=== PATIENT | female | born 1980 | race African-American/Black ===

== ENCOUNTER 2018-03-05 01:36 | Inpatient (IN) | END 2018-03-06 17:20 | disposition home or self-care (01) | DRG 776 ==

== ENCOUNTER 2019-02-22 12:32 | Inpatient (IN) | payer BC ==
[~2019-02-22] VITALS: Ht 168.9 cm; Wt 122.5 kg
[~2019-02-22 12:32] MED LIST: GABA300C16 PO
[2019-02-22] MEDS ORDERED: HYDROmorphONE 1 MG/ML SYG IV STA (12:39)
[2019-02-22] MEDS ORDERED: KETOROLAC 15 MG INJ IV STA (12:39)
[2019-02-22] MEDS ORDERED: SOD CHLORIDE 0.9% 1,000 ML IV STA (12:39)
[2019-02-22] MEDS ORDERED: ONDANSETRON 4 MG INJ IV STA (12:39)
--- NOTE | 2019-02-22 12:48 | ERD ---
ER Documentation Chief Complaint Chief Complaint Back pain, BLE weakness HPI 38-year-old female with chronic back issues who presents with back pain via EMS. The patient states that she was moving suddenly and felt a twinge in her lower back. The patient now has pain that is 8 out of 10 to her lower back. The patient feels like her lower back is numb and is having difficulty moving her lower extremities. She denies any bowel or bladder incontinence. The patient is extremely anxious and states that she feels like she is twitching in her right hand. Patient has been dealing with back pain for some time and has had an MRI. They are currently working to get her physical therapy and see a back specialist. ROS All systems reviewed and are negative except as per history of present illness. Medications Home Meds Reported Medications Duloxetine Hcl* (Duloxetine Hcl*) 60 Mg Capsule.dr, 60 MG PO DAILY, #30 CAP 02/22/19 Aripiprazole* (Abilify*) 5 Mg Tab, 5 MG PO DAILY, #30 TAB 02/22/19 Trazodone Hcl* (Desyrel*) 100 Mg Tab, 100 MG PO QHS, #30 TAB 02/22/19 Ibuprofen* (Ibuprofen*) 800 Mg Tablet, 800 MG PO Q8, TAB 02/22/19 Gabapentin* (Gabapentin*) 600 Mg Tablet, 600 MG PO TID, #90 TAB 02/22/19 Discontinued Scripts Gabapentin* (Gabapentin*) 300 Mg Capsule, 300 MG PO TID, #90 CAP Prov:KEVIN HO 03/06/18 Allergies Allergies: Coded Allergies: butorphanol (Verified Allergy, Unknown, 02/22/19) PMhx/Soc History of Surgery: No Anesthesia Reaction: No Hx Neurological Disorder: No Hx Respiratory Disorders: No Hx Cardiac Disorders: No Hx Psychiatric Problems: No Hx Miscellaneous Medical Probl: Yes (back pain , s=L4-S1 SPINAL STENOSIS , DEGENRERATIVE DISC DISEASE.) Hx Alcohol Use: No Hx Substance Use: No Hx Tobacco Use: No FmHx Family History: No diabetes Physical Exam Vitals Vital Signs Date Temp Pulse Resp B/P (MAP) Pulse Ox O2 O2 Flow FiO2 Time Delivery Rate 02/22/19 80 18 142/97 99 Room Air 15:01 (112) 02/22/19 98.2 79 16 142/102 99 13:34 (115) Physical Exam General: Very anxious, stating that she has difficulty speaking because of her back pain Head: Normocephalic, atraumatic. Eyes: Pupils equally reactive, EOM intact ENT: Moist mucous membranes Neck: Supple, no lymphadenopathy Respiratory: Lungs clear bilaterally, no distress Cardiovascular: RRR, no murmurs, rubs, or gallops Abdominal: Soft, non-tender, non-distended, no peritoneal signs : Deferred MSK: Patient has sensation in the bilateral lower extremities but having difficulty moving them. The patient is not wiggling her toes on command and not bending her knees Back: No midline tenderness deformities or step-offs, limited exam Neurologic: Alert and oriented, moving all extremities, normal speech, no focal weakness, no cerebellar signs Skin: No rash Psych: Normal mood Result Diagram: 02/22/19 1314 02/22/19 1314 Results 24 hrs Laboratory Tests Test 02/22/19 13:14 White Blood Count 14.6 10^3/ul Red Blood Count 4.87 10^6/ul Hemoglobin 12.2 g/dl Hematocrit 39.8 % Mean Corpuscular Volume 81.7 fl Mean Corpuscular Hemoglobin 25.1 pg Mean Corpuscular Hemoglobin Concent 30.7 g/dl Red Cell Distribution Width 15.9 % Platelet Count 447 10^3/UL Mean Platelet Volume 8.8 fl Immature Granulocytes % 0.300 % Neutrophils % 65.6 % Lymphocytes % 24.7 % Monocytes % 7.9 % Eosinophils % 1.0 % Basophils % 0.5 % Nucleated Red Blood Cells % 0.0 /100WBC Immature Granulocytes # 0.050 10^3/ul Neutrophils # 9.6 10^3/ul Lymphocytes # 3.6 10^3/ul Monocytes # 1.2 10^3/ul Eosinophils # 0.1 10^3/ul Basophils # 0.1 10^3/ul Nucleated Red Blood Cells # 0.0 10^3/ul Prothrombin Time 12.8 Sec Prothrombin Time Ratio 1.0 INR International Normalized Ratio 0.95 Activated Partial Thromboplast Time 29.2 Sec Sodium Level 140 mmol/L Potassium Level 3.9 mmol/L Chloride Level 104 mmol/L Carbon Dioxide Level 28 mmol/L Anion Gap 8 Blood Urea Nitrogen 13 mg/dl Creatinine 0.81 mg/dl Est Glomerular Filtrat Rate mL/min > 60 mL/min Glucose Level 94 mg/dl Calcium Level 9.0 mg/dl Serum HCG, Qualitative NEGATIVE Current Medications Medications Dose Sig/Dat Start Time Status Last (Trade) Ordered Route PRN Stop Time Admin Dose Reason Admin Sodium 1,000 ml @ Q1H STAT 02/22/19 DC 02/22/19 Chloride 1,000 mls/hr IV 12:39 15:14 02/22/19 13:38 1 mg ONCE STAT 02/22/19 DC 02/22/19 Hydromorphone IV 12:39 13:27 HCl 02/22/19 12:42 (Dilaudid) Ondansetron 4 mg ONCE STAT 02/22/19 DC 02/22/19 HCl (Zofran IV 12:39 13:26 Inj) 02/22/19 12:42 Ketorolac 15 mg ONCE STAT 02/22/19 DC 02/22/19 Tromethamine IV 12:39 15:14 (Toradol) 02/22/19 12:42 Diazepam 5 mg ONCE ONCE 02/22/19 DC 02/22/19 (Valium) IV 13:00 13:26 02/22/19 13:01 Ondansetron 4 mg BRIDGE ORDER 02/22/19 HCl (Zofran PRN IV 18:00 Inj) NAUSEA/VOMITI 02/23/19 17:59 NG 650 mg ER BRIDGE 02/22/19 Acetaminophen PRN PO 18:00 (Tylenol .MILD PAIN 02/23/19 17:59 Tab) 1-3 OR TEMP Procedures/MDM EKG, MONITORS, & DIAGNOSTIC IMAGING: MRI T & L spine: IMPRESSION: 1. L5-S1: Redemonstration of the 3 mm far left/foraminal protrusion contributing to moderate to severe neural foraminal stenosis and possibly impinging the exiting L5 nerve root. Mild to moderate right neural foraminal stenosis. Central canal. 2. L4-L5: Redemonstration of the small disc bulge with a superimposed 2 mm far right foraminal protrusion contributing to moderate to severe neural foraminal stenosis and likely impinging the exiting L4 nerve root. Moderate left neural foraminal stenosis 3. No acute vertebral body fractures. 4. Overall the findings are similar to the previous study. IMPRESSION: 1. No acute vertebral body fractures. 2. No evidence for central canal stenosis or abnormal cord signal. LAB INTERPRETATION: I reviewed the laboratory testing and it shows [no evidence of acute process] MEDICAL DECISION MAKING: The patient presents with an exacerbation of chronic back pain. Patient is extremely anxious stating that she cannot talk and having twitching in her hand related to the pain. Patient is not moving her bilateral lower extremities. I am suspicious for some behavioral component of this including anxiety however the patient does have a known history of back problems. The patient truly has weakness this could be concerning for cauda equina cord compression and warrants MRI imaging. Stat MRI T and L-spine has been ordered. Patient was recently started on gabapentin and prednisone. Patient will benefit from anxiolysis, muscle relaxation, pain medication. ER COURSE: * The patient was given medication as documented above. The patient has MRI imaging that shows no evidence of cord compression. On repeat examination the patient is still having difficulty moving her lower extremities. Again this still appears to be somewhat behavioral but given the fact that she has persistent symptoms I cannot discharge her. I believe inpatient hospitalization for neurosurgical, neurology consultation would be appropriate. I do not believe this is consistent with cauda equina. No signs or symptoms concerning for Guillain-Byers or alternative diagnosis. CONSULTATION: Neurosurgeon on-call, Dr. Arce notified and will consult DISPOSITION PLAN: Accepting care team and consultations: I discussed the current laboratory data, diagnostic imaging and emergency care provided. Admitting team: Dr. Ugalde Admitting team indication: Insurance directed Departure Diagnosis: Primary Impression: Acute lumbar radiculopathy Additional Impression: Weakness of both lower extremities Condition: Stable KSENIA LANGLEY MD Feb 22, 2019 12:48
[2019-02-22] MEDS ORDERED: DIAZEPAM 5 MG/ML SYG IV ONE (13:00)
[2019-02-22] MEDS ORDERED: IBUP-1544 PO (15:20)
[2019-02-22] MEDS ORDERED: GABA-526 PO (15:20)
[2019-02-22] MEDS ORDERED: ARIP5TAB14 PO (15:21)
[2019-02-22] MEDS ORDERED: DULO60CA59 PO (15:21)
[2019-02-22] MEDS ORDERED: TRAZ-150 PO (15:21)
--- NOTE | 2019-02-22 16:46 | QN ---
Documentation Comment Imaging reviewed and case discussed with ER attending. This 38 year old female presents with exacerbation of back pain. She has no neck pain and her upper extremity strength is nornal per the ER MD. Her lumbar and thoracic spine MR imaging is essentially negative. I do not see any imaging findings that would be consistent with an anatomic cause of her pain or lower extremity weakness. Certainly, there is no indication for neurological surgery based on MRI. I recommend she be evaluated by neurology. Please let me know if neurology feels there is a need for acute neurosurgical intervention. I would be happy so see this patient in any event in follow up as an outpatient. Physiatry/ pain medicine may also be considered for follow up post discharge. Thank you! YANNA GALLO MD Feb 22, 2019 16:46
[2019-02-22] MEDS ORDERED: ACETAMINOPHEN 325 MG TAB PO PRN ×2 (18:00→21:00)
[2019-02-22] MEDS ORDERED: ONDANSETRON 4 MG INJ IV PRN ×2 (18:00→21:00)
[2019-02-22 20:40] VITALS: BP 138/77; PULSE 84; RESP 18
[2019-02-22] MEDS ORDERED: OXYCODONE/ACETAMINOPHEN (5/325) TAB PO PRN (21:00)
[2019-02-22] MEDS ORDERED: ALBUTEROL/IPRATROPIUM (NEB) 3 ML AMP HHN PRN (21:00)
[2019-02-22] MEDS ORDERED: NACL 0.9% 3 ML SYG IV SCH (21:00)
[2019-02-22] MEDS ORDERED: DEXAMETHASONE 4 MG/ML 1 ML INJ IV ONE (21:30)
[2019-02-22 22:01] VITALS: Ht 168.9 cm; Wt 122.5 kg
[2019-02-22] MEDS: traZODone 100 MG TAB PO SCH (22:15)
[2019-02-22] MEDS: GABAPENTIN 300 MG CAP PO SCH (22:15)
--- NOTE | 2019-02-22 23:42 | HP ---
Date/Time of Note Date/Time of Note DATE: 02/22/19 TIME: 23:42 Assessment/Plan VTE Prophylaxis Pharmacological prophylaxis: heparin Lines/Catheters IV Catheter Type (from Nrsg): Saline Lock Urinary Cath still in place: No Assessment/Plan Assessment/Plan Acue on chronic back pain L4-S1 degenerative back changes: not acutely surgical per neurosurgery morbid obesity Leucocytosis : reactive ? Hypochromasia without anemia Chronic depression Dispo: continue supportive care and pain control PT eval plan to d/c when pain is tolerable on oral meds Neurology consult per neurosurgery Result Diagram: 02/22/19 1314 02/22/19 1314 Results 24hrs Laboratory Tests Test 02/22/19 13:14 White Blood Count 14.6 #H Red Blood Count 4.87 Hemoglobin 12.2 Hematocrit 39.8 Mean Corpuscular Volume 81.7 L Mean Corpuscular Hemoglobin 25.1 L Mean Corpuscular Hemoglobin Concent 30.7 L Red Cell Distribution Width 15.9 H Platelet Count 447 H Mean Platelet Volume 8.8 Immature Granulocytes % 0.300 Neutrophils % 65.6 Lymphocytes % 24.7 Monocytes % 7.9 Eosinophils % 1.0 Basophils % 0.5 Nucleated Red Blood Cells % 0.0 Immature Granulocytes # 0.050 H Neutrophils # 9.6 H Lymphocytes # 3.6 H Monocytes # 1.2 H Eosinophils # 0.1 Basophils # 0.1 Nucleated Red Blood Cells # 0.0 Prothrombin Time 12.8 Prothrombin Time Ratio 1.0 INR International Normalized Ratio 0.95 Activated Partial Thromboplast Time 29.2 Sodium Level 140 Potassium Level 3.9 Chloride Level 104 Carbon Dioxide Level 28 Anion Gap 8 Blood Urea Nitrogen 13 Creatinine 0.81 Est Glomerular Filtrat Rate mL/min > 60 Glucose Level 94 Calcium Level 9.0 Serum HCG, Qualitative NEGATIVE HPI/ROS Admit Date/Time Admit Date/Time Feb 22, 2019 at 17:58 Hx of Present Illness 38-year-old female with chronic back issues who presents with back pain via EMS. The patient states that she was moving suddenly and felt a twinge in her lower back. The patient now has pain that is 8 out of 10 to her lower back. The patient feels like her lower back is numb and is having difficulty moving her lower extremities. She denies any bowel or bladder incontinence. The patient is extremely anxious and states that she feels like she is twitching in her right hand. Patient has been dealing with back pain for some time and has had an MRI. They are currently working to get her physical therapy and see a back specialist. PMH/Family/Social Past Medical History Past Surgical History Past Surgical Hx: other (See HPI) Family History Significant Family History: heart disease Social History Alcohol Use: none Smoking Status: Never smoker Drug Use: none Exam Constitutional: other (Intubated. Looks comfortable on a vent) Head: normocephalic, atraumatic Respiratory: diminished breath sounds Cardiovascular: irregular rhythm Gastrointestinal: soft Extremities: normal pulses Medical History: other (see hpi) Medications Current Medications IV Flush (NS 3 ml) 3 ml PER PROTOCOL IV ; Start 02/22/19 at 21:00 Ondansetron HCl (Zofran Inj) 4 mg Q6H PRN IV NAUSEA/VOMITING; Start 02/22/19 at 21:00 Acetaminophen (Tylenol Tab) 650 mg Q6H PRN PO .PAIN 1-3 OR TEMP; Start 02/22/19 at 21:00 Acetaminophen/ Hydrocodone Bitart ([place] (5/325)) 1 tab Q6H PRN PO .MOD PAIN 4- 6; Start 02/22/19 at 21:00 Oxycodone/ Acetaminophen (Percocet (5/ 325)) 1 tab Q6H PRN PO .MOD PAIN 4-6; Start 02/22/19 at 21:00 Hydromorphone HCl (Dilaudid) 1 mg Q4H PRN IV .SEVERE PAIN 7-10; Start 02/22/19 at 21:00 Albuterol/ Ipratropium (Duoneb) 3 ml Q2H RESP THERAPY PRN HHN SHORTNESS OF BREATH; Start 02/22/19 at 21:00 Aripiprazole (Abilify) 5 mg DAILY PO ; Start 02/23/19 at 09:00 Duloxetine HCl (Cymbalta) 60 mg DAILY PO ; Start 02/23/19 at 09:00 Gabapentin (Neurontin) 600 mg TID PO Last administered on 02/22/19at 22:15; Admin Dose 600 MG; Start 02/22/19 at 21:00 Trazodone HCl (Desyrel) 100 mg QHS PO Last administered on 02/22/19at 22:15; Admin Dose 100 MG; Start 02/22/19 at 21:00 Coded Allergies: butorphanol (Verified Allergy, Unknown, 02/22/19) pt claimed she passed out ( loss of consciousness ) after taking stadol. Past Surgical History Past Surgical Hx: other (see hpi) Family History Significant Family History: no pertinent family hx Social History Alcohol Use: other Smoking Status: Never smoker Drug Use: none Exam/Review of Systems Vital Signs Vitals Vital Signs Date Temp Pulse Resp B/P (MAP) Pulse Ox O2 O2 Flow FiO2 Time Delivery Rate 02/22/19 98.6 84 18 138/77 98 20:40 (97) 02/22/19 Room Air 19:56 Exam Constitutional: other (obese, mild distress) Head: normocephalic Eyes: PERRL Neck: supple Respiratory: normal air movement Cardiovascular: nl pulses Gastrointestinal: soft Extremities: normal pulses TATO RODRIGUEZ MD Feb 22, 2019 23:42
[2019-02-23 01:50] VITALS: BP 150/77; PULSE 80; RESP 18
[2019-02-23] MEDS: HYDROmorphONE 0.5 MG/0.5 ML SYG IV PRN ×2 (01:52→09:00)
[2019-02-23] MEDS ORDERED: IBUPROFEN 600 MG TAB PO PRN (03:30)
[2019-02-23 07:46] VITALS: BP 142/94; PULSE 81; RESP 20
[2019-02-23] MEDS: GABAPENTIN 300 MG CAP PO SCH ×3 (09:02→20:54)
[2019-02-23] MEDS: ARIPIPRAZOLE 5 MG TAB PO SCH (09:02)
[2019-02-23] MEDS: DULOXETINE 30 MG CAP DR PO SCH (09:06)
--- NOTE | 2019-02-23 10:42 | PN ---
Date/Time of Note Date/Time of Note DATE: 02/23/19 TIME: 10:37 Assessment/Plan VTE Prophylaxis Pharmacological prophylaxis: LMWH Lines/Catheters IV Catheter Type (from Nrsg): Saline Lock Urinary Cath still in place: No Assessment/Plan Hospital Course 38-year-old female with chronic back issues who presents with back pain via EMS. The patient states that she was moving suddenly and felt a twinge in her lower back. Acue on chronic back pain L4-S1 degenerative back changes: not acutely surgical per neurosurgery morbid obesity Leucocytosis : reactive ? Hypochromasia without anemia Chronic depression Dispo: continue supportive care and pain control PT eval plan to d/c when pain is tolerable on oral meds Neurology consult per neurosurgery Result Diagram: 02/23/1952202/23/19522 Results 24hrs Laboratory Tests Test 02/22/19 13:14 02/23/19 05:23 White Blood Count 14.6 #H 14.8 H Red Blood Count 4.87 5.13 Hemoglobin 12.2 12.8 Hematocrit 39.8 41.9 Mean Corpuscular Volume 81.7 L 81.7 L Mean Corpuscular Hemoglobin 25.1 L 25.0 L Mean Corpuscular Hemoglobin Concent 30.7 L 30.5 L Red Cell Distribution Width 15.9 H 15.8 H Platelet Count 447 H 490 H Mean Platelet Volume 8.8 9.2 Immature Granulocytes % 0.300 0.600 H Neutrophils % 65.6 91.1 H Lymphocytes % 24.7 7.2 L Monocytes % 7.9 1.0 Eosinophils % 1.0 0.0 Basophils % 0.5 0.1 Nucleated Red Blood Cells % 0.0 0.0 Immature Granulocytes # 0.050 H 0.090 H Neutrophils # 9.6 H 13.4 H Lymphocytes # 3.6 H 1.1 Monocytes # 1.2 H 0.2 L Eosinophils # 0.1 0.0 Basophils # 0.1 0.0 Nucleated Red Blood Cells # 0.0 0.0 Prothrombin Time 12.8 Prothrombin Time Ratio 1.0 INR International Normalized Ratio 0.95 Activated Partial Thromboplast Time 29.2 Sodium Level 140 143 Potassium Level 3.9 4.6 Chloride Level 104 105 Carbon Dioxide Level 28 24 Anion Gap 8 14 H Blood Urea Nitrogen 13 11 Creatinine 0.81 0.74 Est Glomerular Filtrat Rate mL/min > 60 > 60 Glucose Level 94 134 # Calcium Level 9.0 9.4 Serum HCG, Qualitative NEGATIVE Phosphorus Level 3.5 Magnesium Level 2.3 Total Bilirubin 0.5 Direct Bilirubin 0.00 Indirect Bilirubin 0.5 Aspartate Amino Transf (AST/SGOT) 16 Alanine Aminotransferase (ALT/SGPT) 12 L Alkaline Phosphatase 71 Total Protein 7.7 Albumin 4.3 Globulin 3.40 H Albumin/Globulin Ratio 1.26 Subjective 24 Hr Interval Summary Free Text/Dictation pain is better with meds c/o numbness tyron LE and feet Exam/Review of Systems Exam Vitals Vital Signs Date Temp Pulse Resp B/P (MAP) Pulse Ox O2 O2 Flow FiO2 Time Delivery Rate 02/23/19 98.1 81 20 142/94 95 07:46 (110) 02/22/19 Room Air 19:56 Intake and Output 02/22/19 02/22/19 02/23/19 1515:00 23:00 07:00 IntakeIntake Total 1000 ml BalanceBalance 1000 ml Constitutional: alert, obese Psych: anxiety Head: normocephalic Eyes: PERRL Neck: supple Respiratory: clear to auscultation Cardiovascular: regular rate and rhythm Gastrointestinal: soft, non-tender, bowel sounds Extremities: No edema Neurological: No focal weakness Results Results 24hrs Laboratory Tests Test 02/22/19 13:14 02/23/19 05:23 White Blood Count 14.6 #H 14.8 H Red Blood Count 4.87 5.13 Hemoglobin 12.2 12.8 Hematocrit 39.8 41.9 Mean Corpuscular Volume 81.7 L 81.7 L Mean Corpuscular Hemoglobin 25.1 L 25.0 L Mean Corpuscular Hemoglobin Concent 30.7 L 30.5 L Red Cell Distribution Width 15.9 H 15.8 H Platelet Count 447 H 490 H Mean Platelet Volume 8.8 9.2 Immature Granulocytes % 0.300 0.600 H Neutrophils % 65.6 91.1 H Lymphocytes % 24.7 7.2 L Monocytes % 7.9 1.0 Eosinophils % 1.0 0.0 Basophils % 0.5 0.1 Nucleated Red Blood Cells % 0.0 0.0 Immature Granulocytes # 0.050 H 0.090 H Neutrophils # 9.6 H 13.4 H Lymphocytes # 3.6 H 1.1 Monocytes # 1.2 H 0.2 L Eosinophils # 0.1 0.0 Basophils # 0.1 0.0 Nucleated Red Blood Cells # 0.0 0.0 Prothrombin Time 12.8 Prothrombin Time Ratio 1.0 INR International Normalized Ratio 0.95 Activated Partial Thromboplast Time 29.2 Sodium Level 140 143 Potassium Level 3.9 4.6 Chloride Level 104 105 Carbon Dioxide Level 28 24 Anion Gap 8 14 H Blood Urea Nitrogen 13 11 Creatinine 0.81 0.74 Est Glomerular Filtrat Rate mL/min > 60 > 60 Glucose Level 94 134 # Calcium Level 9.0 9.4 Serum HCG, Qualitative NEGATIVE Phosphorus Level 3.5 Magnesium Level 2.3 Total Bilirubin 0.5 Direct Bilirubin 0.00 Indirect Bilirubin 0.5 Aspartate Amino Transf (AST/SGOT) 16 Alanine Aminotransferase (ALT/SGPT) 12 L Alkaline Phosphatase 71 Total Protein 7.7 Albumin 4.3 Globulin 3.40 H Albumin/Globulin Ratio 1.26 Imaging Imaging MRI reviewed Medications Medication Current Medications IV Flush (NS 3 ml) 3 ml PER PROTOCOL IV ; Start 02/22/19 at 21:00 Ondansetron HCl (Zofran Inj) 4 mg Q6H PRN IV NAUSEA/VOMITING; Start 02/22/19 at 21:00 Acetaminophen (Tylenol Tab) 650 mg Q6H PRN PO .PAIN 1-3 OR TEMP; Start 02/22/19 at 21:00 Acetaminophen/ Hydrocodone Bitart ([place] (5/325)) 1 tab Q6H PRN PO .MOD PAIN 4- 6; Start 02/22/19 at 21:00 Oxycodone/ Acetaminophen (Percocet (5/ 325)) 1 tab Q6H PRN PO .MOD PAIN 4-6; Start 02/22/19 at 21:00 Hydromorphone HCl (Dilaudid) 1 mg Q4H PRN IV .SEVERE PAIN 7-10 Last administered on 02/23/19at 09:00; Admin Dose 1 MG; Start 02/22/19 at 21:00 Albuterol/ Ipratropium (Duoneb) 3 ml Q2H RESP THERAPY PRN HHN SHORTNESS OF BREATH; Start 02/22/19 at 21:00 Aripiprazole (Abilify) 5 mg DAILY PO Last administered on 02/23/19at 09:02; Admin Dose 5 MG; Start 02/23/19 at 09:00 Duloxetine HCl (Cymbalta) 60 mg DAILY PO Last administered on 02/23/19at 09:06; Admin Dose 60 MG; Start 02/23/19 at 09:00 Gabapentin (Neurontin) 600 mg TID PO Last administered on 02/23/19at 09:02; Admin Dose 600 MG; Start 02/22/19 at 21:00 Trazodone HCl (Desyrel) 100 mg QHS PO Last administered on 02/22/19at 22:15; Admin Dose 100 MG; Start 02/22/19 at 21:00 Ibuprofen (Motrin) 600 mg Q6 PRN PO pain; Start 02/23/19 at 03:30 BUSHRA DEL REAL Feb 23, 2019 10:42
[2019-02-23] MEDS ORDERED: morphine 4 MG/ML VIAL IV PRN (11:00)
[2019-02-23] MEDS: HYDROCODONE/APAP (5/325) TAB PO PRN (13:05)
[2019-02-23 14:21] VITALS: BP 133/80; PULSE 94; RESP 20
[2019-02-23 20:28] VITALS: BP 130/67; PULSE 90; RESP 18
[2019-02-23] MEDS: traZODone 100 MG TAB PO SCH (20:54)
[2019-02-24 02:36] VITALS: BP 125/74; PULSE 80; RESP 18
[2019-02-24 07:56] VITALS: BP 134/85; PULSE 66; RESP 20
[2019-02-24] MEDS: ARIPIPRAZOLE 5 MG TAB PO SCH (08:57)
[2019-02-24] MEDS: GABAPENTIN 300 MG CAP PO SCH ×2 (08:57→12:46)
[2019-02-24] MEDS: DULOXETINE 30 MG CAP DR PO SCH (08:57)
[2019-02-24] MEDS: HYDROCODONE/APAP (5/325) TAB PO PRN ×2 (09:02→19:07)
--- NOTE | 2019-02-24 11:08 | CONS ---
Assessment/Plan Assessment/Plan Hospital Course 38 yo F with a hx of obesity and other comorbidities who presents for evaluation of an acute onset of low back with radiation down her legs. The clinical picture is consistent with an acute lumbosacral radiculopathy. 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 P: Cont gabapentin TID, to be titrated to effect as tolerated Agree with NSAID PRN Limit opiates where possible Consider short course of steroids should pain be refractory.. Physical therapy for evaluation and outpatient follow up Other medical management per primary Will follow clinically Consultation Date/Type/Reason Admit Date/Time Feb 22, 2019 at 17:58 Type of Consult Neurology Reason for Consultation low back pain Requesting Provider: BUSHRA DEL REAL Date/Time of Note DATE: 02/24/19 TIME: 11:08 Hx of Present Illness 38 yo F with hx of obesity and other comorbidities who presented to the ED for evaluation of low back pain. History was obtained from pt and chart review. She currently endorses low back pain, that changed intensity from a 9/10 to a 1/10 with repositioning. At it's worst, she states that it is a 10/10, that originates in her low back and radiates down both of her legs. She describes it as a sharp, burning sensation, like lightning shooting down her legs. Aggravating factors include sitting for long periods of time. Alleviating factors include repositioning and pain medicine, to a lesser degree. It is additionally elsewhere noted: HPI 38-year-old female with chronic back issues who presents with back pain via EMS. The patient states that she was moving suddenly and felt a twinge in her lower back. The patient now has pain that is 8 out of 10 to her lower back. The patient feels like her lower back is numb and is having difficulty moving her lower extremities. She denies any bowel or bladder incontinence. The patient is extremely anxious and states that she feels like she is twitching in her right hand. Patient has been dealing with back pain for some time and has had an MRI. They are currently working to get her physical therapy and see a back specialist. negative unless noted otherwise in HPI Exam/Review of Systems Exam Vitals Vital Signs Date Temp Pulse Resp B/P (MAP) Pulse Ox O2 O2 Flow FiO2 Time Delivery Rate 02/24/19 97.1 66 20 134/85 97 07:56 (101) 02/22/19 Room Air 19:56 Intake and Output 02/23/19 02/23/19 02/24/19 1515:00 23:00 07:00 IntakeIntake Total 1000 ml 440 ml BalanceBalance 1000 ml 440 ml Exam PE: Gen Appearance: No Apparent Distress HEENT: Normocephalic Cardiovascular: Regular rate Lungs: Clear bilaterally Abdomen: Soft Extremities: Dry NE: The patient was alert and oriented. Language was normal. Fund of knowledge was normal. Pupils were equal and reactive to light. There was no afferent pupillary defect. Visual caballero were normal. Funduscopic examination was limited. Extra-ocular movements were full. Ptosis was absent. There was no nystagmus. Facial sensation was normal. Face was symmetric with normal strength. Hearing was intact. Palate movements were normal. Neck strength was normal. There was normal tongue bulk and speed of movement. Tone was normal. Muscle bulk was normal. I did not see fasciculations. Arms and legs were mildly weak on the R. Vibration sensation was diminished on the R. Temperature and pinprick sensation was normal. Rapid alternating movements were normal. There was no dysmetria. There was no intention tremor. Gait was deferred due to bedrest. Arm reflexes were 2+ and symmetric; leg reflexes were brisk and symmetric. Hof fman's sign was absent. Plantar responses were flexor. Results Result Diagram: 02/24/192 02/24/19 0442 Results 24hrs Laboratory Tests Test 02/23/19 11:38 02/24/19 04:42 Urine Color YELLOW Urine Clarity SLIGHTLY CLOUDY A Urine pH 5.0 Urine Specific [place] 1.021 Urine Ketones NEGATIVE Urine Nitrite NEGATIVE Urine Bilirubin NEGATIVE Urine Urobilinogen NEGATIVE Urine Leukocyte Esterase NEGATIVE Urine Microscopic RBC > 182 H Urine Microscopic WBC 6 H Urine Squamous Epithelial Cells FEW Urine Bacteria FEW A Urine Mucus FEW A Urine Hemoglobin 3+ H Urine Glucose NEGATIVE Urine Total Protein NEGATIVE Urine Opiates Screen Positive Urine Barbiturates Negative Urine Amphetamines Screen Negative Urine Benzodiazepines Screen Negative Urine Cocaine Screen Negative Urine Cannabinoids Negative White Blood Count 16.9 H Red Blood Count 4.56 Hemoglobin 11.6 L Hematocrit 38.0 Mean Corpuscular Volume 83.3 Mean Corpuscular Hemoglobin 25.4 L Mean Corpuscular Hemoglobin Concent 30.5 L Red Cell Distribution Width 15.9 H Platelet Count 438 H Mean Platelet Volume 9.2 Immature Granulocytes % 0.400 Neutrophils % 62.2 Lymphocytes % 29.9 Monocytes % 6.7 Eosinophils % 0.5 Basophils % 0.3 Nucleated Red Blood Cells % 0.0 Immature Granulocytes # 0.070 H Neutrophils # 10.5 H Lymphocytes # 5.1 H Monocytes # 1.1 H Eosinophils # 0.1 Basophils # 0.1 Nucleated Red Blood Cells # 0.0 Sodium Level 142 Potassium Level 4.0 Chloride Level 105 Carbon Dioxide Level 28 Anion Gap 9 # Blood Urea Nitrogen 15 Creatinine 0.90 Est Glomerular Filtrat Rate mL/min > 60 Glucose Level 96 Hemoglobin A1c 5.5 Calcium Level 8.9 Magnesium Level 2.2 Iron Level 41 Total Iron Binding Capacity 322 Percent Iron Saturation 13 L Thyroid Stimulating Hormone (TSH) 0.263 L Medications Medication Current Medications IV Flush (NS 3 ml) 3 ml PER PROTOCOL IV ; Start 02/22/19 at 21:00 Ondansetron HCl (Zofran Inj) 4 mg Q6H PRN IV NAUSEA/VOMITING; Start 02/22/19 at 21:00 Acetaminophen (Tylenol Tab) 650 mg Q6H PRN PO .PAIN 1-3 OR TEMP; Start 02/22/19 at 21:00 Acetaminophen/ Hydrocodone Bitart ([place] (5/325)) 1 tab Q6H PRN PO .MOD PAIN 4- 6 Last administered on 02/24/19at 09:02; Admin Dose 1 TAB; Start 02/22/19 at 21:00 Oxycodone/ Acetaminophen (Percocet (5/ 325)) 1 tab Q6H PRN PO .MOD PAIN 4-6 Last administered on 02/23/19at 16:55; Admin Dose 1 TAB; Start 02/22/19 at 21:00 Albuterol/ Ipratropium (Duoneb) 3 ml Q2H RESP THERAPY PRN HHN SHORTNESS OF BREATH; Start 02/22/19 at 21:00 Aripiprazole (Abilify) 5 mg DAILY PO Last administered on 02/24/19at 08:57; Admin Dose 5 MG; Start 02/23/19 at 09:00 Duloxetine HCl (Cymbalta) 60 mg DAILY PO Last administered on 02/24/19at 08:57; Admin Dose 60 MG; Start 02/23/19 at 09:00 Gabapentin (Neurontin) 600 mg TID PO Last administered on 02/24/19at 08:57; Admin Dose 600 MG; Start 02/22/19 at 21:00 Trazodone HCl (Desyrel) 100 mg QHS PO Last administered on 02/23/19at 20:54; Admin Dose 100 MG; Start 02/22/19 at 21:00 Ibuprofen (Motrin) 600 mg Q6 PRN PO pain; Start 02/23/19 at 03:30 Morphine Sulfate (morphine) 4 mg Q4H PRN IV SEVERE PAIN LEVEL 7-10; Start 02/23/19 at 11:00 Past Medical History reviewed Home Meds Reported Medications Duloxetine Hcl* (Duloxetine Hcl*) 60 Mg Capsule.dr, 60 MG PO DAILY, #30 CAP 02/22/19 Aripiprazole* (Abilify*) 5 Mg Tab, 5 MG PO DAILY, #30 TAB 02/22/19 Trazodone Hcl* (Desyrel*) 100 Mg Tab, 100 MG PO QHS, #30 TAB 02/22/19 Ibuprofen* (Ibuprofen*) 800 Mg Tablet, 800 MG PO Q8, TAB 02/22/19 Gabapentin* (Gabapentin*) 600 Mg Tablet, 600 MG PO TID, #90 TAB 02/22/19 Discontinued Scripts Gabapentin* (Gabapentin*) 300 Mg Capsule, 300 MG PO TID, #90 CAP Prov:ABI HONELL 03/06/18 Medications Current Medications IV Flush (NS 3 ml) 3 ml PER PROTOCOL IV ; Start 02/22/19 at 21:00 Ondansetron HCl (Zofran Inj) 4 mg Q6H PRN IV NAUSEA/VOMITING; Start 02/22/19 at 21:00 Acetaminophen (Tylenol Tab) 650 mg Q6H PRN PO .PAIN 1-3 OR TEMP; Start 02/22/19 at 21:00 Acetaminophen/ Hydrocodone Bitart ([place] (5/325)) 1 tab Q6H PRN PO .MOD PAIN 4- 6 Last administered on 02/24/19at 09:02; Admin Dose 1 TAB; Start 02/22/19 at 21:00 Oxycodone/ Acetaminophen (Percocet (5/ 325)) 1 tab Q6H PRN PO .MOD PAIN 4-6 Last administered on 02/23/19at 16:55; Admin Dose 1 TAB; Start 02/22/19 at 21:00 Albuterol/ Ipratropium (Duoneb) 3 ml Q2H RESP THERAPY PRN HHN SHORTNESS OF BREATH; Start 02/22/19 at 21:00 Aripiprazole (Abilify) 5 mg DAILY PO Last administered on 02/24/19 08:57; Admin Dose 5 MG; Start 02/23/19 at 09:00 Duloxetine HCl (Cymbalta) 60 mg DAILY PO Last administered on 02/24/19at 08:57; Admin Dose 60 MG; Start 02/23/19 at 09:00 Gabapentin (Neurontin) 600 mg TID PO Last administered on 02/24/19at 08:57; Admin Dose 600 MG; Start 02/22/19 at 21:00 Trazodone HCl (Desyrel) 100 mg QHS PO Last administered on 02/23/19at 20:54; Admin Dose 100 MG; Start 02/22/19 at 21:00 Ibuprofen (Motrin) 600 mg Q6 PRN PO pain; Start 02/23/19 at 03:30 Morphine Sulfate (morphine) 4 mg Q4H PRN IV SEVERE PAIN LEVEL 7-10; Start 02/23/19 at 11:00 Allergies: Coded Allergies: butorphanol (Verified Allergy, Unknown, 02/22/19) pt claimed she passed out ( loss of consciousness ) after taking stadol. Past Surgical History reviewed Past Surgical Hx: no surgical history Social History reviewed Smoking Status: Never smoker YUDY PEREYRA NP Feb 24, 2019 11:08 OSCAR NERI Feb 24, 2019 13:10
[2019-02-24 14:12] VITALS: BP 130/73; PULSE 91; RESP 20
[2019-02-24] MEDS: POLYETHYLENE GLYCOL 17 GM PACKET PO SCH (14:18)
--- NOTE | 2019-02-24 18:37 | PN ---
Date/Time of Note Date/Time of Note DATE: 02/24/19 TIME: 18:28 Assessment/Plan VTE Prophylaxis Risk score (from Nsg)>0 risk: 1 SCD applied (from Nsg): Yes Pharmacological prophylaxis: LMWH Lines/Catheters IV Catheter Type (from Nrsg): Peripheral IV Urinary Cath still in place: No Assessment/Plan Hospital Course 38-year-old female with chronic back issues who presents with back pain via EMS. The patient states that she was moving suddenly and felt a twinge in her lower back. Acute on chronic back pain : pain is controlled at rest but stioll very uncomfor table with movement L4-S1 degenerative back changes: not acutely surgical per neurosurgery morbid obesity Leucocytosis : likely steroid related Hypochromasia without anemia Chronic depression Tremors : meds?, thyroid? UTI Low TSH Dispo: continue supportive care and pain control PT eval with brace for support plan to d/c when pain is tolerable on oral meds Neurology recs noted and appreciated Repeat thyroid profile Result Diagram: 02/24/192 02/24/19 0442 Results 24hrs Laboratory Tests Test 02/24/19 04:42 White Blood Count 16.9 H Red Blood Count 4.56 Hemoglobin 11.6 L Hematocrit 38.0 Mean Corpuscular Volume 83.3 Mean Corpuscular Hemoglobin 25.4 L Mean Corpuscular Hemoglobin Concent 30.5 L Red Cell Distribution Width 15.9 H Platelet Count 438 H Mean Platelet Volume 9.2 Immature Granulocytes % 0.400 Neutrophils % 62.2 Lymphocytes % 29.9 Monocytes % 6.7 Eosinophils % 0.5 Basophils % 0.3 Nucleated Red Blood Cells % 0.0 Immature Granulocytes # 0.070 H Neutrophils # 10.5 H Lymphocytes # 5.1 H Monocytes # 1.1 H Eosinophils # 0.1 Basophils # 0.1 Nucleated Red Blood Cells # 0.0 Sodium Level 142 Potassium Level 4.0 Chloride Level 105 Carbon Dioxide Level 28 Anion Gap 9 # Blood Urea Nitrogen 15 Creatinine 0.90 Est Glomerular Filtrat Rate mL/min > 60 Glucose Level 96 Hemoglobin A1c 5.5 Calcium Level 8.9 Magnesium Level 2.2 Iron Level 41 Total Iron Binding Capacity 322 Percent Iron Saturation 13 L Thyroid Stimulating Hormone (TSH) 0.263 L Subjective 24 Hr Interval Summary Free Text/Dictation tremors at rest, new onset? Exam/Review of Systems Exam Vitals Vital Signs Date Temp Pulse Resp B/P (MAP) Pulse Ox O2 O2 Flow FiO2 Time Delivery Rate 02/24/19 98.3 91 20 130/73 97 14:12 (92) 02/22/19 Room Air 19:56 Intake and Output 02/23/19 02/23/19 02/24/19 1515:00 23:00 07:00 IntakeIntake Total 1000 ml 440 ml BalanceBalance 1000 ml 440 ml Exam Constitutional: alert, obese Psych: anxiety Head: normocephalic Eyes: PERRL Neck: supple Respiratory: clear to auscultation Cardiovascular: regular rate and rhythm Gastrointestinal: soft, non-tender, bowel sounds Extremities: No edema Neurological: No focal weakness, tremors R hand Results Results 24hrs Laboratory Tests Test 02/24/19 04:42 White Blood Count 16.9 H Red Blood Count 4.56 Hemoglobin 11.6 L Hematocrit 38.0 Mean Corpuscular Volume 83.3 Mean Corpuscular Hemoglobin 25.4 L Mean Corpuscular Hemoglobin Concent 30.5 L Red Cell Distribution Width 15.9 H Platelet Count 438 H Mean Platelet Volume 9.2 Immature Granulocytes % 0.400 Neutrophils % 62.2 Lymphocytes % 29.9 Monocytes % 6.7 Eosinophils % 0.5 Basophils % 0.3 Nucleated Red Blood Cells % 0.0 Immature Granulocytes # 0.070 H Neutrophils # 10.5 H Lymphocytes # 5.1 H Monocytes # 1.1 H Eosinophils # 0.1 Basophils # 0.1 Nucleated Red Blood Cells # 0.0 Sodium Level 142 Potassium Level 4.0 Chloride Level 105 Carbon Dioxide Level 28 Anion Gap 9 # Blood Urea Nitrogen 15 Creatinine 0.90 Est Glomerular Filtrat Rate mL/min > 60 Glucose Level 96 Hemoglobin A1c 5.5 Calcium Level 8.9 Magnesium Level 2.2 Iron Level 41 Total Iron Binding Capacity 322 Percent Iron Saturation 13 L Thyroid Stimulating Hormone (TSH) 0.263 L Medications Medication Current Medications IV Flush (NS 3 ml) 3 ml PER PROTOCOL IV ; Start 02/22/19 at 21:00 Ondansetron HCl (Zofran Inj) 4 mg Q6H PRN IV NAUSEA/VOMITING; Start 02/22/19 at 21:00 Acetaminophen (Tylenol Tab) 650 mg Q6H PRN PO .PAIN 1-3 OR TEMP; Start 02/22/19 at 21:00 Acetaminophen/ Hydrocodone Bitart ([place] (5/325)) 1 tab Q6H PRN PO .MOD PAIN 4- 6 Last administered on 02/24/19 09:02; Admin Dose 1 TAB; Start 02/22/19 at 21:00 Oxycodone/ Acetaminophen (Percocet (5/ 325)) 1 tab Q6H PRN PO .MOD PAIN 4-6 Last administered on 02/23/19 16:55; Admin Dose 1 TAB; Start 02/22/19 at 21:00 Albuterol/ Ipratropium (Duoneb) 3 ml Q2H RESP THERAPY PRN HHN SHORTNESS OF BREATH; Start 02/22/19 at 21:00 Aripiprazole (Abilify) 5 mg DAILY PO Last administered on 02/24/19 08:57; Admin Dose 5 MG; Start 02/23/19 at 09:00 Duloxetine HCl (Cymbalta) 60 mg DAILY PO Last administered on 02/24/19 08:57; Admin Dose 60 MG; Start 02/23/19 at 09:00 Trazodone HCl (Desyrel) 100 mg QHS PO Last administered on 02/23/19 20:54; Admin Dose 100 MG; Start 02/22/19 at 21:00 Ibuprofen (Motrin) 600 mg Q6 PRN PO pain; Start 02/23/19 at 03:30 Morphine Sulfate (morphine) 4 mg Q4H PRN IV SEVERE PAIN LEVEL 7-10; Start 02/23/19 at 11:00 Gabapentin (Neurontin) 800 mg TID PO ; Start 02/24/19 at 21:00 Polyethylene Glycol (Miralax) 17 gm DAILY PO Last administered on 02/24/19 14:18; Admin Dose 17 GM; Start 02/24/19 at 14:00 BUSHRA DEL REAL Feb 24, 2019 18:37
[2019-02-24] MEDS: CEFTRIAXONE 1 GM/50 ML (PMX) 50 ML IVPB SCH (18:58)
[2019-02-24 21:03] VITALS: BP 140/90; PULSE 74; RESP 18
[2019-02-24] MEDS: traZODone 100 MG TAB PO SCH (21:15)
[2019-02-24] MEDS: GABAPENTIN 400 MG CAP PO SCH (21:15)
[2019-02-25 02:36] VITALS: BP 133/77; PULSE 79; RESP 18
--- NOTE | 2019-02-25 07:11 | CONS ---
Assessment/Plan Assessment/Plan Assessment/Plan (Daily) New onset low back pain and is morbidly obese 38-year-old female no warning signs apparent upon examination tremor history of anxiety depression status post drug block Agree with the use of low-dose nonsteroidal anti-inflammatory medications and low-dose opioids. Physical therapy consultation and ambulate patient to as soon as possible agree patient to be discharged at any time with follow-up to her primary care physician. Consultation Date/Type/Reason Admit Date/Time Feb 22, 2019 at 17:58 Date/Time of Note DATE: 02/25/19 TIME: 06:59 Hx of Present Illness This is a very pleasant 38-year-old female who has a long-standing history of low back pain admitted. Patient states that she ascribes it to having had a epidural block in the past and sense of time she served periodic bouts of severe low back pain radiating into her right lower extremity. She denies any warning signs public anesthesia, incontinence of urine or feces, or recent illness. States she can do all of her normal activities of daily living at rest she is comfortable with ambulation she rates her pain 7/10. At home she is only used nonsteroidal anti-inflammatory medications no opioids. She says the pain interferes with her physical functioning social relationships and sleeping patterns. She denies nausea vomiting constipation itching mental cloudiness's wedding fatigue drowsiness. There's no past medical history of purposeful oversedation suicidal ideation she does not appear to be intoxicated or unkempt she does not drive secondary to low back pain and patient states they do not have our mobile. He is not asking for certain opioids or certain combinations of opioids. I do not give the impression she is his pain control medications and responses situational stressors there is no contact with street drugs she doesn't smoke she doesn't drink. Other comorbid medical problems include morbid obesity, leukocytosis from recently being treated with steroids, in all probability history of chronic depression and history of tremors of unknown gus ology at this time.Patient describes the pain as a knowing toothache like pain with electric shocks down her right leg into her ankle with minimal ambulation does not radiate into the left leg. She has no loss of motor function she has no loss of sensory. 1. L5-S1: Redemonstration of the 3 mm far left/foraminal protrusion contributing to moderate to severe neural foraminal stenosis and possibly impinging the exiting L5 nerve root. Mild to moderate right neural foraminal stenosis. Central canal. 2. L4-L5: Redemonstration of the small disc bulge with a superimposed 2 mm far right foraminal protrusion contributing to moderate to severe neural foraminal stenosis and likely impinging the exiting L4 nerve root. Moderate left neural foraminal stenosis 3. No acute vertebral body fractures. 4. Overall the findings are similar to the previous study. Eyes: no complaints; No pain, No discharge, No redness, No visual change, No other ENT: no complaints; No bleeding, No pain, No congestion, No discharge, No dysphagia, No sore throat, No other Respiratory: no complaints; No pain, No cough, No pleuritic pain, No shortness of breath, No sputum, No wheezing, No other Cardiovascular: no complaints; No chest pain, No edema, No lightheadedness, No orthopenea, No palpitations, No paroxysmal nocturnal dyspnea, No other Gastrointestinal: no complaints; No pain, No blood, No constipation, No decreased appetite, No diarrhea, No flatus, No nausea, No passing stool, No vomiting, No other Genitourinary: no complaints; No bleeding, No dysuria, No discharge, No flank pain, No hematuria, No other Musculoskeletal: no complaints; No back pain, No bone/joint pain, No neck pain, No restricted range of motion, No swelling, No other Skin: no complaints; No bruising, No erythema, No laceration, No pruritis, No rash, No skin lesions, No other Neurologic: no complaints; No confusion, No dizziness, No focal-weakness, No headache, No syncope, No seizure, No other Psychological: anxiety, depression Past Medical History Medical History: no pertinent history Home Meds Reported Medications Duloxetine Hcl* (Duloxetine Hcl*) 60 Mg Capsule.dr, 60 MG PO DAILY, #30 CAP 02/22/19 Aripiprazole* (Abilify*) 5 Mg Tab, 5 MG PO DAILY, #30 TAB 02/22/19 Trazodone Hcl* (Desyrel*) 100 Mg Tab, 100 MG PO QHS, #30 TAB 02/22/19 Ibuprofen* (Ibuprofen*) 800 Mg Tablet, 800 MG PO Q8, TAB 02/22/19 Gabapentin* (Gabapentin*) 600 Mg Tablet, 600 MG PO TID, #90 TAB 02/22/19 Discontinued Scripts Gabapentin* (Gabapentin*) 300 Mg Capsule, 300 MG PO TID, #90 CAP Prov:KEVIN HO 03/06/18 Medications Current Medications IV Flush (NS 3 ml) 3 ml PER PROTOCOL IV ; Start 02/22/19 at 21:00 Ondansetron HCl (Zofran Inj) 4 mg Q6H PRN IV NAUSEA/VOMITING; Start 02/22/19 at 21:00 Acetaminophen (Tylenol Tab) 650 mg Q6H PRN PO .PAIN 1-3 OR TEMP; Start 02/22/19 at 21:00 Acetaminophen/ Hydrocodone Bitart ([place] (5/325)) 1 tab Q6H PRN PO .MOD PAIN 4- 6 Last administered on 02/24/19at 19:07; Admin Dose 1 TAB; Start 02/22/19 at 21:00 Oxycodone/ Acetaminophen (Percocet (5/ 325)) 1 tab Q6H PRN PO .MOD PAIN 4-6 Last administered on 02/23/19at 16:55; Admin Dose 1 TAB; Start 02/22/19 at 21:00 Albuterol/ Ipratropium (Duoneb) 3 ml Q2H RESP THERAPY PRN HHN SHORTNESS OF BREATH; Start 02/22/19 at 21:00 Aripiprazole (Abilify) 5 mg DAILY PO Last administered on 02/24/19at 08:57; Admin Dose 5 MG; Start 02/23/19 at 09:00 Duloxetine HCl (Cymbalta) 60 mg DAILY PO Last administered on 02/24/19at 08:57; Admin Dose 60 MG; Start 02/23/19 at 09:00 Trazodone HCl (Desyrel) 100 mg QHS PO Last administered on 02/24/19 21:15; Admin Dose 100 MG; Start 02/22/19 at 21:00 Ibuprofen (Motrin) 600 mg Q6 PRN PO pain; Start 02/23/19 at 03:30 Morphine Sulfate (morphine) 4 mg Q4H PRN IV SEVERE PAIN LEVEL 7-10; Start 02/23/19 at 11:00 Gabapentin (Neurontin) 800 mg TID PO Last administered on 02/24/19 21:15; Admin Dose 800 MG; Start 02/24/19 at 21:00 Polyethylene Glycol (Miralax) 17 gm DAILY PO Last administered on 02/24/19at 14:18; Admin Dose 17 GM; Start 02/24/19 at 14:00 Ceftriaxone Sodium 50 ml @ 100 mls/hr Q24H IVPB Last administered on 02/24/19at 18:58; Admin Dose 100 MLS/HR; Start 02/24/19 at 19:00 Enoxaparin Sodium (Lovenox) 40 mg DAILY SC ; Start 02/25/19 at 09:00 Allergies: Coded Allergies: butorphanol (Verified Allergy, Unknown, 02/22/19) pt claimed she passed out ( loss of consciousness ) after taking stadol. Past Surgical History Past Surgical Hx: no surgical history, other Social History Alcohol Use: none Smoking Status: Never smoker Drug Use: none Exam/Review of Systems Exam Vitals Vital Signs Date Temp Pulse Resp B/P (MAP) Pulse Ox O2 O2 Flow FiO2 Time Delivery Rate 02/25/19 98.5 79 18 133/77 94 02:36 (95) 02/22/19 Room Air 19:56 Intake and Output 02/24/19 02/24/19 02/25/19 1414:59 22:59 06:59 IntakeIntake Total 1240 ml 720 ml BalanceBalance 1240 ml 720 ml Constitutional: alert, oriented, well developed; No non-verbal, No distress, No frail, No obese, No other Psych: anxiety Eyes: nl conjunctiva, EOMI, nl lids, nl sclera, PERRL; No icteric, No fundi, disc, No other Extremities: normal pulses; No calf tenderness, No cyanosis, No clubbing, No edema, No pitting pedal edema, No palpable cord, No tenderness, No other Neurological: other (Range of motion bilateral lower extremities intact motor intact bilateral lower extremity sensory intact bilateral lower extremities. Motor 3/5 right lower extremity left lower extremity five over five. Negative straight leg sign of side positive straight leg sign right side at 20) Results Result Diagram: 02/25/19 0514 02/25/19 0514 Results 24hrs Laboratory Tests Test 02/25/19 05:14 White Blood Count 14.8 H Red Blood Count 4.66 Hemoglobin 11.7 L Hematocrit 38.9 Mean Corpuscular Volume 83.5 Mean Corpuscular Hemoglobin 25.1 L Mean Corpuscular Hemoglobin Concent 30.1 L Red Cell Distribution Width 15.8 H Platelet Count 428 H Mean Platelet Volume 9.1 Immature Granulocytes % 0.300 Neutrophils % 48.0 Lymphocytes % 42.3 Monocytes % 7.3 Eosinophils % 1.5 Basophils % 0.6 Nucleated Red Blood Cells % 0.0 Immature Granulocytes # 0.050 H Neutrophils # 7.1 Lymphocytes # 6.3 H Monocytes # 1.1 H Eosinophils # 0.2 Basophils # 0.1 Nucleated Red Blood Cells # 0.0 Sodium Level 143 Potassium Level 4.1 Chloride Level 105 Carbon Dioxide Level 30 Anion Gap 8 Blood Urea Nitrogen 13 Creatinine 0.93 Est Glomerular Filtrat Rate mL/min > 60 Glucose Level 90 Calcium Level 8.9 Thyroid Stimulating Hormone (TSH) 0.827 Free Thyroxine Index 2.13 Thyroxine (T4) 6.2 Triiodothyronine (T3) Uptake 34.3 Medications Medication Current Medications IV Flush (NS 3 ml) 3 ml PER PROTOCOL IV ; Start 02/22/19 at 21:00 Ondansetron HCl (Zofran Inj) 4 mg Q6H PRN IV NAUSEA/VOMITING; Start 02/22/19 at 21:00 Acetaminophen (Tylenol Tab) 650 mg Q6H PRN PO .PAIN 1-3 OR TEMP; Start 02/22/19 at 21:00 Acetaminophen/ Hydrocodone Bitart ([place] (5/325)) 1 tab Q6H PRN PO .MOD PAIN 4- 6 Last administered on 02/24/19at 19:07; Admin Dose 1 TAB; Start 02/22/19 at 21:00 Oxycodone/ Acetaminophen (Percocet (5/ 325)) 1 tab Q6H PRN PO .MOD PAIN 4-6 Last administered on 02/23/19at 16:55; Admin Dose 1 TAB; Start 02/22/19 at 21:00 Albuterol/ Ipratropium (Duoneb) 3 ml Q2H RESP THERAPY PRN HHN SHORTNESS OF BREATH; Start 02/22/19 at 21:00 Aripiprazole (Abilify) 5 mg DAILY PO Last administered on 02/24/19at 08:57; Admin Dose 5 MG; Start 02/23/19 at 09:00 Duloxetine HCl (Cymbalta) 60 mg DAILY PO Last administered on 02/24/19 08:57; Admin Dose 60 MG; Start 02/23/19 at 09:00 Trazodone HCl (Desyrel) 100 mg QHS PO Last administered on 02/24/19 21:15; Admin Dose 100 MG; Start 02/22/19 at 21:00 Ibuprofen (Motrin) 600 mg Q6 PRN PO pain; Start 02/23/19 at 03:30 Morphine Sulfate (morphine) 4 mg Q4H PRN IV SEVERE PAIN LEVEL 7-10; Start 02/23/19 at 11:00 Gabapentin (Neurontin) 800 mg TID PO Last administered on 02/24/19 21:15; Admin Dose 800 MG; Start 02/24/19 at 21:00 Polyethylene Glycol (Miralax) 17 gm DAILY PO Last administered on 02/24/19at 14:18; Admin Dose 17 GM; Start 02/24/19 at 14:00 Ceftriaxone Sodium 50 ml @ 100 mls/hr Q24H IVPB Last administered on 02/24/19 18:58; Admin Dose 100 MLS/HR; Start 02/24/19 at 19:00 Enoxaparin Sodium (Lovenox) 40 mg DAILY SC ; Start 02/25/19 at 09:00 GIANCARLO NEVES Feb 25, 2019 07:10
[2019-02-25] MEDS: HYDROCODONE/APAP (5/325) TAB PO PRN ×2 (07:22→18:18)
[2019-02-25 07:55] VITALS: BP 147/88; PULSE 87; RESP 20
[2019-02-25] MEDS: DULOXETINE 30 MG CAP DR PO SCH (08:15)
[2019-02-25] MEDS: GABAPENTIN 400 MG CAP PO SCH ×3 (08:15→21:24)
[2019-02-25] MEDS: ARIPIPRAZOLE 5 MG TAB PO SCH (08:15)
[2019-02-25] MEDS: POLYETHYLENE GLYCOL 17 GM PACKET PO SCH (08:15)
[2019-02-25] MEDS: ENOXAPARIN 40 MG/0.4 ML SYG SC SCH (08:19)
[2019-02-25 13:50] VITALS: BP 138/61; PULSE 71; RESP 20
--- NOTE | 2019-02-25 14:06 | CONS ---
Assessment/Plan Assessment/Plan Hospital Course 38 yo F with a Hx of obesity and other comorbidities who presents for evaluation of an acute onset of low back with radiation down her legs. The clinical picture is consistent with an acutely exacerbated lumbosacral radiculopathy. 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 P: Cont gabapentin 800mg TID, to be titrated to effect as tolerated.. Agree with NSAIDs PRN Limit opiates where possible Consider short course of steroids should pain be refractory.. Continue PT/OT as tolerated Other medical management per primary Will follow clinically Consultation Date/Type/Reason Admit Date/Time Feb 22, 2019 at 17:58 Type of Consult Neurology Requesting Provider: BUSHRA DEL REAL Date/Time of Note DATE: 02/25/19 TIME: 14:06 24 HR Interval Summary Free Text/Dictation Continues acute care. Exam Vital Signs Vitals Vital Signs Date Temp Pulse Resp B/P (MAP) Pulse Ox O2 O2 Flow FiO2 Time Delivery Rate 02/25/19 98.0 87 20 147/88 94 07:55 (107) 02/22/19 Room Air 19:56 Intake and Output 02/24/19 02/24/19 02/25/19 1515:00 23:00 07:00 IntakeIntake Total 1240 ml 720 ml 400 ml BalanceBalance 1240 ml 720 ml 400 ml Exam PE: Gen Appearance: No Apparent Distress HEENT: Normocephalic Cardiovascular: Regular rate Lungs: Clear bilaterally Abdomen: Soft Extremities: Dry NE: The patient was alert and oriented. Language was normal. Fund of knowledge was normal. Pupils were equal and reactive to light. There was no afferent pupillary defect. Visual caballero were normal. Funduscopic examination was limited. Extra-ocular movements were full. Ptosis was absent. There was no nystagmus. Facial sensation was normal. Face was symmetric with normal strength. Hearing was intact. Palate movements were normal. Neck strength was normal. There was normal tongue bulk and speed of movement. Tone was normal. Muscle bulk was normal. Mild R hand tremor noted. Arms and legs were mildly weak on the R. Vibration sensation was diminished on the R. Temperature and pinprick sensation was normal. Rapid alternating movements were normal. There was no dysmetria. There was no intention tremor. Gait was deferred due to bedrest. Arm reflexes were 2+ and symmetric; leg reflexes were brisk and symmetric. Torre's sign was absent. Plantar responses were flexor. OSCAR NERI Feb 25, 2019 14:06 YUDY PEREYRA NP Feb 25, 2019 16:38
[2019-02-25] MEDS ORDERED: NITR-58 PO (17:04)
[2019-02-25] MEDS ORDERED: GABA400C14 PO (17:04)
[2019-02-25] MEDS ORDERED: IBUP-1544 PO (17:04)
[2019-02-25] MEDS ORDERED: HYDR-3601 PO (17:04)
[2019-02-25] MEDS ORDERED: POLY17PO6 PO (17:04)
--- NOTE | 2019-02-25 17:32 | DS ---
Date/Time of Note Date/Time of Note DATE: 02/25/19 TIME: 17:32 Discharge Summary Admission/Discharge Info Admit Date/Time Feb 22, 2019 at 17:58 Discharge Date/Time Hospital Course 38-year-old female with chronic back issues who presents with back pain via EMS. The patient states that she was moving suddenly and felt a twinge in her lower back. Acute on chronic back pain : pain is controlled at rest but stioll very uncomfortable with movement L4-S1 degenerative back changes: not acutely surgical per neurosurgery morbid obesity Leucocytosis : likely steroid related Hypochromasia without anemia Chronic depression Tremors : meds?, thyroid? UTI Low TSH Dispo: continue supportive care and pain control PT eval with brace for support plan to d/c when pain is tolerable on oral meds Neurology recs noted and appreciated Repeat thyroid profile Home Meds Reported Medications Duloxetine Hcl* (Duloxetine Hcl*) 60 Mg Capsule.dr, 60 MG PO DAILY, #30 CAP 02/22/19 Aripiprazole* (Abilify*) 5 Mg Tab, 5 MG PO DAILY, #30 TAB 02/22/19 Trazodone Hcl* (Desyrel*) 100 Mg Tab, 100 MG PO QHS, #30 TAB 02/22/19 Ibuprofen* (Ibuprofen*) 800 Mg Tablet, 800 MG PO Q8, TAB 02/22/19 Gabapentin* (Gabapentin*) 600 Mg Tablet, 600 MG PO TID, #90 TAB 02/22/19 Discontinued Scripts Gabapentin* (Gabapentin*) 300 Mg Capsule, 300 MG PO TID, #90 CAP Prov:KEVIN HO 03/06/18 Primary Care Provider Walter Gutierrez MD Pending Labs Laboratory Tests Test 02/25/19 05:14 White Blood Count 14.8 10^3/ul (4.8-10.8) Red Blood Count 4.66 10^6/ul (4.20-5.40) Hemoglobin 11.7 g/dl (12.0-16.0) Hematocrit 38.9 % (37.0-47.0) Mean Corpuscular Volume 83.5 fl (82.0-101.0) Mean Corpuscular Hemoglobin 25.1 pg (29.0-33.0) Mean Corpuscular Hemoglobin Concent 30.1 g/dl (32.0-37.0) Red Cell Distribution Width 15.8 % (11.5-14.5) Platelet Count 428 10^3/UL (140-415) Mean Platelet Volume 9.1 fl (7.4-10.4) Immature Granulocytes % 0.300 % (0.001-0.429) Neutrophils % 48.0 % (39.0-77.0) Lymphocytes % 42.3 % (15.0-51.0) Monocytes % 7.3 % (0.0-11.0) Eosinophils % 1.5 % (0.0-7.0) Basophils % 0.6 % (0.0-2.0) Nucleated Red Blood Cells % 0.0 /100WBC (0.0-0.0) Immature Granulocytes # 0.050 10^3/ul (0.0-0.031) Neutrophils # 7.1 10^3/ul (1.6-7.5) Lymphocytes # 6.3 10^3/ul (0.8-2.9) Monocytes # 1.1 10^3/ul (0.3-0.9) Eosinophils # 0.2 10^3/ul (0.0-0.5) Basophils # 0.1 10^3/ul (0.0-0.1) Nucleated Red Blood Cells # 0.0 10^3/ul (0.0-0.0) Sodium Level 143 mmol/L (135-144) Potassium Level 4.1 mmol/L (3.5-5.1) Chloride Level 105 mmol/L (97-110) Carbon Dioxide Level 30 mmol/L (21-31) Anion Gap 8 (5-13) Blood Urea Nitrogen 13 mg/dl (7-20) Creatinine 0.93 mg/dl (0.44-1.00) Est Glomerular Filtrat Rate mL/min > 60 mL/min (>60) Glucose Level 90 mg/dl (70-220) Calcium Level 8.9 mg/dl (8.4-10.2) Thyroid Stimulating Hormone (TSH) 0.827 MIU/L (0.465-4.680) Free Thyroxine Index 2.13 ug/ml (0.65-3.89) Thyroxine (T4) 6.2 ug/dl (5.5-11.0) Triiodothyronine (T3) Uptake 34.3 % (23.5-40.5) BUSHRA DEL REAL Feb 25, 2019 17:32
[2019-02-25] MEDS: CEFTRIAXONE 1 GM/50 ML (PMX) 50 ML IVPB SCH (18:18)
[2019-02-25 20:00] VITALS: BP 127/78; PULSE 90; RESP 18
[2019-02-25] MEDS: traZODone 100 MG TAB PO SCH (21:24)
[2019-02-26 02:00] VITALS: BP 119/60; PULSE 88; RESP 18
[2019-02-26 07:55] VITALS: BP 140/78; PULSE 78; RESP 18
[2019-02-26] MEDS: ARIPIPRAZOLE 5 MG TAB PO SCH (08:25)
[2019-02-26] MEDS: POLYETHYLENE GLYCOL 17 GM PACKET PO SCH (08:25)
[2019-02-26] MEDS: DULOXETINE 30 MG CAP DR PO SCH (08:25)
[2019-02-26] MEDS: GABAPENTIN 400 MG CAP PO SCH ×2 (08:25→14:06)
[2019-02-26] MEDS: ENOXAPARIN 40 MG/0.4 ML SYG SC SCH (08:27)
[2019-02-26] MEDS: HYDROCODONE/APAP (5/325) TAB PO PRN (08:36)
--- NOTE | 2019-02-26 11:21 | CONS ---
Assessment/Plan Assessment/Plan Hospital Course 38 yo F with a Hx of obesity and other comorbidities who presents for evaluation of an acute onset of low back with radiation down her legs. The clinical picture is consistent with an acutely exacerbated lumbosacral radiculopathy. 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 P: Cont gabapentin 800mg TID, to be titrated to effect as tolerated.. Agree with NSAIDs PRN Limit opiates where possible Consider short course of steroids should pain be refractory.. Continue PT/OT as tolerated Other medical management per primary Will follow clinically Consultation Date/Type/Reason Admit Date/Time Feb 22, 2019 at 17:58 Type of Consult Neurology Reason for Consultation low back pain Requesting Provider: BUSHRA DEL REAL Date/Time of Note DATE: 02/26/19 TIME: 11:20 Exam Vital Signs Vitals Vital Signs Date Temp Pulse Resp B/P (MAP) Pulse Ox O2 O2 Flow FiO2 Time Delivery Rate 02/26/19 98.0 78 18 140/78 95 07:55 (98) 02/22/19 Room Air 19:56 Intake and Output 02/25/19 02/25/19 02/26/19 1515:00 23:00 07:00 IntakeIntake Total 1040 ml 810 ml BalanceBalance 1040 ml 810 ml YUDY PEREYRA NP Feb 26, 2019 11:20 OSCAR NERI Feb 26, 2019 14:38
[2019-02-26 14:53] VITALS: BP 130/84; PULSE 99; RESP 19
--- NOTE | 2019-02-26 15:23 | PDOCDIS ---
Discharge Instructions CONDITION [id number] Patient Condition: [id number] Stable HOME CARE INSTRUCTIONS: [id number] Diet Instructions: [id number] Reduced Calorie FOLLOW UP/APPOINTMENTS Follow-up Plan f/u with back specialist and PCP for continued management Make sure you complete your antibiotics for UTI BUSHRA DEL REAL Feb 26, 2019 15:23
--- NOTE | 2019-02-26 16:20 | DS ---
DATE OF ADMISSION: 02/22/2019 DATE OF DISCHARGE: 02/26/2019 FINAL DIAGNOSES: A 38-year-old female with morbid obesity who presented with chronic back pain with an acute exacerbation after sudden movements managed as follows: 1. Acute on chronic back pain: Pain is well controlled, status post neurosurgical recommendation an d neurology review and plan is for conservative management at this time. L4-S1 degenerative back roselyn nges noted on MRI. The patient has been provided with a TLSO brace for comfort. 2. Morbid obesity. 3. ____ leukocytosis. 4. Hypochromia without anemia. 5. Chronic depression. 6. Medication up to date. 7. Urinary tract infection. CONSULTS ON THE CASE: 1. A neurosurgical consult was obtained again and I reviewed the patient, but he did put recommendat ions in the chart. They are recommending neurology review. 2. Neurology, Dr. Rody Hernandez. 3. Dr. Feng Dan for pain management. INTERVENTIONS: The patient underwent thoracic and lumbar spine MRI that showed the presence for mode rate to severe neural foraminal stenosis, possibly impinging on the exiting L5 root at L5-S1 and incl uded the same impinging on the L4 nerve root at L4-L5. SHORT HOSPITAL COURSE: This patient has presented with an acute exacerbation of back pain, she was b eing worked up as outpatient for chronic back pain and was supposed to get back sessions, and so when she had recurrent exacerbation, she came to the Emergency Room and she was admitted for workup after the MRI had shown the findings above. But neurosurgery declined to see the patient stating that MRI did not show anything that warranted surgical intervention and instead recommended a neurology katyo carolynn. Neurology saw the patient and did ____ patient at this time, but for conservative management th at was for weight loss. She was also seen by pain management to help with pain control. At this ti me the pain is much better. She was also found to have a urinary tract infection which is being treat ed. The patient is being discharged in stable condition to follow up with outpatient back specialist and to complete her therapy for a urinary tract infection. DISCHARGE CONDITION: Stable. ACTIVITY: As tolerated. DIET: Recommended diet is reduced calorie about 2000 calorie daily. She is encouraged to pursue low ght loss as safely as possible. She was also encouraged to follow up with PCP and ____ surgery as so on as possible to discuss the MRI findings with them. She verbalized understanding and agreement to the plan. For a list of discharge medications, please review the patient's chart. Time spent on evaluation today has been about 32 minutes. Dictated By: BUSHRA DEL REAL MD BA/NTS Conf#: [id number] DID#: [id number]
== END 2019-02-26 15:40 | disposition home health service (06) | DRG 552 ==
LOC: E/R 12:32 → 2NE 17:58
PROVIDERS: ADMIT Internal Medicine; ATTEND Family Medicine
DX: M51.16 Intervertebral disc disorders with radiculopathy, lumbar region (principal); Z68.41 Body mass index [BMI] 40.0-44.9, adult; N39.0 Urinary tract infection, site not specified; E66.01 Morbid (severe) obesity due to excess calories; M48.07 Spinal stenosis, lumbosacral region; M51.17 Intervertebral disc disorders with radiculopathy, lumbosacral region; R25.1 Tremor, unspecified; F32.9 Major depressive disorder, single episode, unspecified; F41.9 Anxiety disorder, unspecified
CPT/HCPCS: 36415; 72146; 72148; 80048; 80053; 80307; 81001; 83036; 83540; 83735; 84100; 84436; 84443; 84479; 84703; 85025; 85610; 85730; 87086; 96361; 96374; 96375; 97116; 97162; 97530; J0696; J1100; J1170; J1650; J1885; J2405; J3360; J7030; L0464